=== PATIENT | female | born 1950 | race Asian ===

== ENCOUNTER 2017-02-26 03:01 | Emergency (ER) | payer OTHER ==
[2017-02-26] MEDS ORDERED: Morphine INJ* 2 MG/ML 1 ML SYRINGE IV ONE (03:29)
[2017-02-26] MEDS ORDERED: NS 0.9% 1000 ML* 1,000 ML IV ONE (03:29)
[2017-02-26] MEDS ORDERED: Ondansetron INJ* 2 MG/ML VIAL IV ONE (03:29)
[2017-02-26 03:47] LABS: Hematocrit 45 % (35-47); Hemoglobin 14.6 g/dl (12.0-16.0); Mean Corpuscular HGB Conc 33 g/dl (31-36); Mean Corpuscular Hemoglobin 31 pg (27-31); Mean Corpuscular Volume 95 fL (80-97); Mean Platelet Volume 10 um3 (7.4-10.4); Red Blood Count 4.73 10^6/ul (4.0-5.4); Red Cell Distribution Width 13 % (10.5-15); White Blood Count 8.8 10^3/ul (3.5-10.8)
[2017-02-26 04:01] LABS: BUN/Creatinine Ratio 9.7 (8-20); C Reactive Protein 3.24 mg/L (< 5.00); Calcium 8.9 mg/dL (8.6-10.3); EGFR African American 104.9 (>60); EGFR Non-African American 81.6 (>60); Globulin 3.3 g/dL (2-4); Magnesium 2.4 mg/dL (1.9-2.7); Potassium 3.5 mmol/L (3.5-5.0); Total Bilirubin 0.4 mg/dL (0.2-1.0); Total Protein 7.3 g/dL (6.4-8.9)
--- NOTE | 2017-02-26 05:17 | ED ---
I, Oh,Sodustin, scribed for Osmel Locke MD on 02/26/17 at 0332 . Abdominal Pain/Female - HPI Summary HPI Summary: Somewhat limited HPI due to certain level of language barrier. This 66 y/o female presents to ED for intermittent RUQ pain since mid night. Pt initially dismissed pain and attempted to fall asleep. She decided to visit ED when abd pain came back and woke pt up around 0130 AM. Pt denies hx of any similar pain. PMHx includes splenectomy. - History of Current Complaint Chief Complaint: EDAbdPain Stated Complaint: ULQ PAIN Time Seen by Provider: 02/26/17 03:12 Hx Obtained From: Patient Onset/Duration: Still Present Timing: Intermittent Episode Lasting Pain Intensity: 8 Pain Scale Used: 0-10 Numeric Location: Discrete At: RUQ Radiates: No Character: Dull Aggravating Factor(s): Nothing Alleviating Factor(s): Nothing Associated Signs and Symptoms: Negative: Fever Allergies/Adverse Reactions: Allergies Allergy/AdvReac Type Severity Reaction Status Date / Time No Known Allergies Allergy Verified 01/29/17 14:25 PMH/Surg Hx/FS Hx/Imm Hx - Cancer History Hx Chemotherapy: No Hx Radiation Therapy: No Infectious Disease History: No Infectious Disease History: Denies: Traveled Outside the [place] in Last 30 Days Review of Systems Negative: Fever Positive: Abdominal Pain All Other Systems Reviewed And Are Negative: Yes Physical Exam Triage Information Reviewed: Yes Vital Signs On Initial Exam: Initial Vitals Temp Pulse Resp BP Pulse Ox 98.3 F 72 16 135/91 100 02/26/17 03:08 02/26/17 03:08 02/26/17 03:08 02/26/17 03:08 02/26/17 03:08 Vital Signs Reviewed: Yes Appearance: Positive: Pain Distress - mild rlkq pain, Thin Skin: Positive: Warm Head/Face: Positive: Normal Head/Face Inspection Eyes: Positive: MAHI ENT: Positive: Hearing grossly normal Neck: Positive: Supple Respiratory/Lung Sounds: Positive: Clear to Auscultation, Breath Sounds Present Cardiovascular: Positive: Normal Abdomen Description: Positive: Soft, McBurney's Point Tenderness. Negative: Distended, Guarding Bowel Sounds: Positive: Present Musculoskeletal: Positive: Strength/ROM Intact Neurological: Positive: Alert, Oriented to Person Place, Time Diagnostics - Vital Signs Vital Signs Temp Pulse Resp BP Pulse Ox 02/26/17 03:08 98.3 F 72 16 135/91 100 - Laboratory Result Diagrams: 02/26/17 03:38 02/26/17 03:38 Lab Statement: Any lab studies that have been ordered have been reviewed, and results considered in the medical decision making process. - CT Ab/P CT Interpretation Completed By: Radiologist - Official reading pending at this moment. See EMR Abdominal Pain Fem Course/Dx - Diagnoses Provider Diagnoses: Cholelithiases Discharge - Discharge Plan Condition: Stable Disposition: HOME Discharge Disposition Comment: Signed out at shift change. CT reading pending. Patient Education Materials: Gallstones (ED) Referrals: Osmel Leigh MD [Medical Doctor] - 3 Days (PLEASE F/U IN 2-3 DAYS) Bo Ellis MD [Primary Care Provider] - The documentation as recorded by the Lex gaspar Soohyun accurately reflects the service I personally performed and the decisions made by me, Osmel Locke MD.
[2017-02-26] MEDS ORDERED: Iohexol 300* (CONTRAST) 10 ML SDV IV ONE (06:03)
--- NOTE | 2017-02-26 08:04 | RAD ---
CLINICAL HISTORY: Right lower quadrant pain COMPARISON: None TECHNIQUE: Multiple contiguous axial CT scans were obtained of the abdomen and pelvis after the administration of intravenous contrast. Coronal and sagittal multiplanar reformations are submitted for review. Oral contrast was administered. Delayed images were obtained through the abdomen and pelvis. FINDINGS: LUNG BASES: On axial image 9, there is a 0.2 cm nodule of the right lower lobe LIVER: There is a simple hepatic cyst of the right lobe measuring 6.2 cm. There are multiple smaller low-attenuation lesions also suggestive of hepatic cysts. BILE DUCTS: There is no intrahepatic or extrahepatic biliary dilatation. GALLBLADDER: A gallstone is noted. There is no pericholecystic inflammatory change. PANCREAS: The pancreas is normal, without mass or ductal dilatation. SPLEEN: The patient appears to be status post splenectomy. Small splenules are noted. UPPER GI TRACT: Evaluation of the gastrointestinal tract is limited by incomplete gastric distention. The upper GI tract is unremarkable. SMALL BOWEL AND MESENTERY: The small bowel is normal in contour, course, and caliber. There is no obstruction or dilatation. COLON: There is a large amount of stool within the colon. The appendix is not well visualized. There is no appreciable inflammatory change in the right lower quadrant ADRENALS: Normal bilaterally. KIDNEYS: The kidneys are normal in shape, size, contour, and axis. There is no hydronephrosis or nephrolithiasis. BLADDER: The bladder is smooth in contour. PELVIC ORGANS: The uterus and adnexa are grossly normal for technique. AORTA: The aorta is normal. IVC: Unremarkable LYMPH NODES: There is no lymphadenopathy by size criteria. ABDOMINAL WALL: There is no evidence for abdominal wall hernia. BONES AND SOFT TISSUES: There are mild diffuse degenerative changes. OTHER: None IMPRESSION: 1. THE APPENDIX IS NOT VISUALIZED. THERE IS NO APPRECIABLE INFLAMMATORY CHANGE IN THE RIGHT LOWER QUADRANT. 2. CHOLELITHIASIS. 3. STATUS POST SPLENECTOMY. 4. HEPATIC CYSTS. 5. 0.3 CM NODULE OF THE RIGHT LOWER LOBE. THE RECOMMENDATIONS FOR FOLLOWUP AND MANAGEMENT OF AN INCIDENTALLY DETECTED PULMONARY NODULE LESS THAN 6 MM IN SIZE, IN A PATIENT WITHOUT A HISTORY OF MALIGNANCY, INCLUDE NO FOLLOWUP FOR A LOW-RISK PATIENT OR OPTIONAL FOLLOWUP CT IN 12 MONTHS FOR A HIGH RISK PATIENT. NOTES: SIZE = AVERAGE LENGTH AND WIDTH; HIGH RISK IS DEFINED A HISTORY OF SMOKING OR OTHER KNOW RISK FACTORS FOR LUNG CANCER; LOW RISK IS DEFINED MINIMAL OR ABSENT HISTORY OF SMOKING OR OTHER KNOWN RISK FACTORS. Mic H, THANIA Rocha, STEPHY Plaza, et al (2017) "Guidelines for Management of Incidental Pulmonary Nodules Detected on CT Images: From the Fleischner Society 2017." Radiology; 284(1): 228-243. doi:10.1148/radiol.2361100218
--- NOTE | 2017-02-26 09:27 | RAD ---
Indication: Right upper quadrant pain. Real-time sonography of the right upper quadrant was performed. The liver measures 14 cm in length. There are several hepatic cysts the largest measuring 6.2 x 5.4 x 5.9 cm. This is in the posterior segment of the right lobe. Other smaller cysts are noted. The gallbladder is distended with echogenic foci consistent with cholelithiasis. No pericholecystic fluid or wall thickening is identified. The common duct measures up to 8 mm. Right kidney measures 10.5 x 4.3 x 4.4 cm. The pancreas demonstrates no mass or pancreatic duct dilatation. Aorta and inferior vena cava are unremarkable. IMPRESSION: Distended gallbladder with gallstones. No pericholecystic fluid or wall thickening is identified. Hepatic cysts are noted.
[2017-02-26 10:07] VITALS: BP 119/69
--- NOTE | 2017-02-26 17:45 | ED ---
Sandrine García Edward, scribed for Eric Plata MD on 02/26/17 at 0726 . Progress - Progress Note Progress Note: Sign out by Dr. Locke. Re-evholly @ 20:05. Pt states the pain is much improved. VITAL SIGNS: Reviewed. GENERAL: Patient is a well-developed and nourished female who is lying comfortable in the stretcher. ~Patient is not in any acute respiratory distress. HEAD AND FACE: Normocephalic and atraumatic. EYES: PERRLA, EOMI x 2, No injected conjunctiva. EARS: Hearing grossly intact. Ear canals and tympanic membranes are WNL. MOUTH: Oropharynx within normal limits. NECK: Supple, trachea is midline, no adenopathy, no JVD. CHEST: Symmetric, no tenderness at palpation LUNGS: Clear to auscultation bilaterally. No wheezing or crackles. CVS: RRR, S1 and S2 present, no murmurs or gallops appreciated. ABDOMEN: Soft, RUQ tenderness. No signs of distention. Positive bowel sounds. No rebound no guarding, and no masses palpated. No abdominal bruit or pulsations. EXTREMITIES: FROM in all major joints, no edema, no cyanosis or clubbing. NEURO: Alert and oriented x 3. No acute neurological deficits. Speech is normal. SKIN: Dry and warm ABD/PEL CT SHOWS 1. THE APPENDIX IS NOT VISUALIZED. THERE IS NO APPRECIABLE INFLAMMATORY CHANGE IN THE RIGHT LOWER QUADRANT. 2. CHOLELITHIASIS. 3. STATUS POST SPLENECTOMY. 4. HEPATIC CYSTS. 5. 0.3 CM NODULE OF THE RIGHT LOWER LOBE. THE RECOMMENDATIONS FOR FOLLOWUP AND MANAGEMENT OF AN INCIDENTALLY DETECTED PULMONARY NODULE LESS THAN 6 MM IN SIZE, IN A PATIENT WITHOUT A HISTORY OF MALIGNANCY, INCLUDE NO FOLLOWUP FOR A LOW-RISK PATIENT OR OPTIONAL FOLLOWUP. ABD US SHOWS Distended gallbladder with gallstones. No pericholecystic fluid or wall thickening is identified. Hepatic cysts are noted. ASSESSMENT AND PLAN - Pt signed out by Dr. Locke. ABD/PEL CT SHOWS 1. THE APPENDIX IS NOT VISUALIZED. THERE IS NO APPRECIABLE INFLAMMATORY CHANGE IN THE RIGHT LOWER QUADRANT. 2. CHOLELITHIASIS. 3. STATUS POST SPLENECTOMY. 4. HEPATIC CYSTS. 5. 0.3 CM NODULE OF THE RIGHT LOWER LOBE. THE RECOMMENDATIONS FOR FOLLOWUP AND MANAGEMENT OF AN INCIDENTALLY DETECTED PULMONARY NODULE LESS THAN 6 MM IN SIZE, IN A PATIENT WITHOUT A HISTORY OF MALIGNANCY, INCLUDE NO FOLLOWUP FOR A LOW-RISK PATIENT OR OPTIONAL FOLLOWUP. ABD US SHOWS Distended gallbladder with gallstones. No pericholecystic fluid or wall thickening is identified. Hepatic cysts are noted. The pt is signed out by Dr. Locke who requested an ABD/PEL CT to r/u appendicitis. Since the pt has gallstones I decided to take an ABD US to r/u acute cholecystitis. Although the pts pain has decreased and has no abnormal WBC. Since pt is asymptomatic and has no pain with multiple ABD examinations, I believe the pt has no acute cholecystitis. However, she does have cholelithiasis. Pt will be d/c home with f/u with surgery. The patient is instructed to return if she develops increased ABD pain , N/V, fevers and chills. Course/Dx - Diagnoses Provider Diagnoses: Cholelithiases The documentation as recorded by the Sandrine gaspar Edward accurately reflects the service I personally performed and the decisions made by , Eric Plata MD.
== END 2017-02-26 10:08 | disposition home or self-care (01) ==
LOC: ED 03:01
DX: K80.20 Calculus of gallbladder without cholecystitis without obstruction (principal); R10.11 Right upper quadrant pain
CPT/HCPCS: 36415; 74177; 76705; 80053; 83605; 83690; 83735; 85025; 86140; 96374; 96375; 99282; J2270; J2405; Q9967